=== PATIENT | female | born 1965 | race African-American/Black ===

== ENCOUNTER 2020-05-27 12:28 | Outpatient (REF) | payer OTHER, SELFPAY ==
--- NOTE | 2020-05-27 12:30 | MM_ITS ---
EXAMINATION: MM SCREENING DIGITAL BREAST TOMOSYNTHESIS, BILATERAL CLINICAL INFORMATION: Screening. Asymptomatic. The lifetime risk of breast cancer based on the Tyrer-Cuzick Model is 3.0%. COMPARISON: Mammography: October 24, 2018 and studies dating back to December 13, 2007 TECHNIQUE: Digital breast tomosynthesis is performed in both the craniocaudal and mediolateral oblique views along with computer-aided detection (CAD). Synthesized 2D images are generated from the tomosynthesis. FINDINGS: The breasts are heterogeneously dense, which may obscure small masses (ACR BI-RADS breast composition Category c). There are no significant masses, abnormal calcifications, or other abnormalities. MM/MM tomosynthesis screening BI IMPRESSION: There are no significant changes from prior study. ASSESSMENT: BI-RADS 1: Negative RECOMMENDATION: Routine annual mammography screening. This patient's information was entered into a reminder system with a target due date for their next mammogram.
== END 2020-05-27 12:29 | disposition home or self-care (01) ==
LOC: HO.MAMMO 12:28
PROVIDERS: Visit Provider Obstetrics & Gynecology
DX: Z12.31 Encounter for screening mammogram for malignant neoplasm of breast (principal)
CPT/HCPCS: 77063; 77067

== ENCOUNTER 2022-09-16 13:45 | Outpatient (RCR) | payer OTHER, SELFPAY ==
--- NOTE | 2022-08-25 10:04 | HO.PHP ---
The clients case was reviewed and opened in the treatment team.
[2022-08-25 12:00] VITALS: BP 104/70; PULSE 68; TEMP 36.9
[2022-08-25 12:01] VITALS: BMI 27.6
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
--- NOTE | 2022-09-09 11:58 | HO.PHPPROGNO ---
Subjective Subjective Date of Service: 09/09/22 Reason For Visit: MDD,anxiety Medical Problems Affecting Mental Status: No Interim History: Continues with depressed, anxious mood and affect. No SI reported, no safety concerns. Has been considering retrial of increased dose of Wellbutrin 150 mg daily. Medication Compliance: Yes Side effects from medications: No Attending Groups: Yes Review of Systems Acute medical concerns: No Medical Review of Systems: unchanged Review of Systems Review of Systems Yes all other systems are reviewed and are negative Constitutional: Reports no additional constitutional complaints Mental Status Exam Mental Status Exam Narrative: NAD Patient Appearance: Well Grooomed Patient Orientation: Person, Place, Time and Situation Level of Consciousness: Appropriate Patient Behavior: Appropriate Mood Description: Depressed and Anxious Affect Description: Withdrawn and Depressed Patient Cognition Impaired: No Ability to Follow Directions: Good Speech Pattern: Clear and Coherent Memory Description: Intact Hallucinations: None Delusions: Not Present Thought Process: Rumination Thought Content: positive for Intact Depressive Symptoms: Increased Anxiety, Diff. Making Decisions, Loss of Int. in Activity, Isolating-Friends/Family, Unhappiness, Increased Fatigue and Loss of Energy Judgement: Fair Diagnostics Vital Signs (24Hr): BMI result Body Mass Index 27.6 Assessment & Plan Assessment & Plan (1) Major depressive disorder, recurrent, moderate: Status: Acute Code(s): F33.1 - Major depressive disorder, recurrent, moderate Assessment and Plan: Patient reports continued depressed, anxious mood. Affect congruent. Discussed Wellbutrin. Had tried a brief trial of increased dose for several days, 150 mg. Reports that she thinks she should try this again, as she did not give it a fair trial. Has supply at home from this provider, will take increased dose over the weekend, with follow-up next week. No SI reported, no safety concerns. (2) Generalized anxiety disorder: Status: Acute Code(s): F41.1 - Generalized anxiety disorder Plan 1. Increase Wellbutrin to 150 mg daily. Patient has small supply at home, from this provider. 2. Continue with current [facility] plan of care. 3. Continue other medications as currently prescribed. 4. Follow-up as per protocol. Patient educated on: diagnosis, medication risk/benefits and therapeutic strategies Reason for contiued partial hosp. stay Substantial Risk for: inability to function and rapid decompensation Certification I certify that partial hospital treatment is medically necessary due to the symptoms and problems resulting from the patient's mental illness and the failure to treat the patient at the partial hospital level of care would likely result in the patient requiring inpatient psychiatric care which could not be prevented at a less intensive level of care. Total time managing care of this patient today _15___ minutes. Discharge Plan Discharge Attending provider: Elmer Berger Medications: New trazodone 50 mg tablet 50 mg PO BEDTIME PRN (Reason: sleep) Qty: 14 0RF Rx Instructions: take 1/2 to 1 tab at bedtime as needed for sleep bupropion HCl 100 mg tablet sustained-release 12 hr 100 mg PO DAILY Qty: 30 0RF Discontinued bupropion HCl 100 mg tablet sustained-release 12 hr 1 tab PO QAM No Action clonazepam 0.5 mg tablet 1 tab PO TID PRN (Reason: anxiety)
--- NOTE | 2022-09-13 15:16 | HO.PHP ---
Yolanda called and said she was called into work today.
--- NOTE | 2022-09-16 13:39 | HO.PHPPROGNO ---
Subjective Subjective Date of Service: 09/16/22 Reason For Visit: MDD,anxiety Medical Problems Affecting Mental Status: No Interim History: Presents as guarded, suspicious. Requesting clonazepam prescription. Refused to sign discharge paperwork. Unable to complete full assessments. [facility] script clonazepam provided, patient has been instructed to contact her outpatient psychiatric provider for full script. Attending Groups: Yes Review of Systems Acute medical concerns: No Review of Systems Review of Systems refused Mental Status Exam Mental Status Exam Patient Appearance: Appropriate Patient Orientation: Person, Place, Time and Situation Level of Consciousness: Appropriate and Alert Patient Behavior: Guarded and Suspicious Affect Description: Suspicious Speech Pattern: Clear Diagnostics Vital Signs (24Hr): BMI result Body Mass Index 27.6 Assessment & Plan Assessment & Plan (1) Major depressive disorder, recurrent, moderate: Status: Acute Code(s): F33.1 - Major depressive disorder, recurrent, moderate Assessment and Plan: Patient presents as guarded, suspicious. Dismissive. Asked student to leave room. Refused to sign discharge instructions paperwork. Requesting prescription for Klonopin. Was instructed to contact her outpatient provider, as this appeals writer has not provided Klonopin while she has been in program. As it is holiday weekend, [place] script sent to her pharmacy to allow time for her to contact her own provider. (2) Generalized anxiety disorder: Status: Acute Code(s): F41.1 - Generalized anxiety disorder Plan Patient to be discharged from [facility] at this time. Did not participate in full follow-up meeting. Certification I certify that partial hospital treatment is medically necessary due to the symptoms and problems resulting from the patient's mental illness and the failure to treat the patient at the partial hospital level of care would likely result in the patient requiring inpatient psychiatric care which could not be prevented at a less intensive level of care. Total time managing care of this patient today __10__ minutes. Discharge Plan Discharge Attending provider: Elmer Berger Medications: New trazodone 50 mg tablet 50 mg PO BEDTIME PRN (Reason: sleep) Qty: 14 0RF Rx Instructions: take 1/2 to 1 tab at bedtime as needed for sleep bupropion HCl 100 mg tablet sustained-release 12 hr 100 mg PO DAILY Qty: 30 0RF clonazepam 0.5 mg tablet 0.5 mg PO TID PRN (Reason: anxiety) Qty: 15 0RF Discontinued bupropion HCl 100 mg tablet sustained-release 12 hr 1 tab PO QAM No Action clonazepam 0.5 mg tablet 1 tab PO TID PRN (Reason: anxiety) Stand Alone Forms: Patient Portal Discharge page Patient Education: Depression (DC), Anxiety (GEN)
--- NOTE | 2022-09-16 14:58 | HO.PHP ---
I sat with the client to complete her discharge and she stated that she isn't sure that she is ready and that her family thinks that she should be hospitalized. She states that they do not see her getting better. I agreed to call her mother while we were sitting together to get a better understanding of her concerns. Her mother states that Ange will call her crying and anxious at 4 am and it is difficult to console her. When I suggested that Ange has been stressed by multiple losses her mother stated that she has struggled for years with episodes of similar presentation. Her mother is concerned and questions if Ange would benefit from hospitalization. I discussed this with the client after the phone call and she states that she would be more triggered by patients on the inpatient unit. We agreed to put off discharge and come in next Monday and Monday.
--- NOTE | 2022-09-20 13:10 | HO.PHP ---
I spoke with the client who called out today because of the weather. She states that she had a difficult weekend. We discussed tomorrow being her last day. She is safe
== END 2022-09-16 23:59 | disposition home or self-care (01) ==
LOC: HO.PHPA 13:45
PROVIDERS: Visit Provider Psychiatry & Neurology Psychiatry
DX: F33.1 Major depressive disorder, recurrent, moderate (principal); F41.1 Generalized anxiety disorder; Z79.899 Other long term (current) drug therapy
CPT/HCPCS: 90791; 90853